=== PATIENT | female | born 1970 | race Asian ===

== ENCOUNTER 2018-12-09 18:22 | Emergency (ER) | payer MEDICAID ==
[~2018-12-09] VITALS: Ht 157.5 cm; Wt 61.2 kg
[2018-12-09 18:33] VITALS: BP 99/57
== END 2018-12-09 19:10 | disposition home or self-care (01) ==
LOC: ED 18:22
DX: K21.9 Gastro-esophageal reflux disease without esophagitis (principal); J02.9 Acute pharyngitis, unspecified